=== PATIENT | female | born 1950 | race Caucasian/White ===

== ENCOUNTER 2022-01-19 19:40 | Observation (INO) ==
[2022-01-19] MEDS ORDERED: Naloxone 0.4 MG/ML INJ IVP PRN (20:00)
[2022-01-19] MEDS ORDERED: Ondansetron 4 MG/2 ML VIAL IVP PRN (20:00)
[2022-01-19] MEDS ORDERED: 0.9 % Sodium Chloride 1,000 ML IVC SCH (20:00)
[2022-01-19] MEDS ORDERED: Acetaminophen 325 MG TABLET PO PRN (20:00)
[2022-01-19] MEDS ORDERED: Fluticasone Propionate Nasal 50 MCG/SPRAY BOTTLE NS PRN (20:05)
[2022-01-19] MEDS ORDERED: D5% in Water 1,000 ML IVC PRN (20:09)
[2022-01-19] MEDS ORDERED: *HR* Dextrose 50 % in Water (Syg) 50 ML SYRINGE IVP PRN (20:09)
[2022-01-19] MEDS ORDERED: Dextrose 4 GM Chewable Tablets PO PRN ×2 (20:09)
[2022-01-19] MEDS ORDERED: Insulin DETEMIR 100 UNIT/ML per UNIT SUBQ ONE (21:30)
[2022-01-20 07:03] LABS: BUN/Creatinine Ratio 14 (6-26); Blood Urea Nitrogen 9 mg/dL (8-23); Calcium 8.7 mg/dL (8.6-10.3); Carbon Dioxide 26 mEq/L (23-29); Chloride 105 mEq/L (98-107); Chol/HDL Ratio 5.4 (0-4.9); Cholesterol 179 mg/dL (< 200); Glucose 160 mg/dL (70-105); HDL Cholesterol 33 mg/dL (40-59); LDL Cholesterol,Calculated 119 mg/dL (< 100); Magnesium 1.7 mg/dL (1.6-2.6); Osmolality,Calculated 288 (280-300); Potassium 3.3 mEq/L (3.5-5.1); Sodium 138 mEq/L (136-145); Triglycerides 134 mg/dL (< 150); eGFR For African Americans > 60 (> 60); eGFR For Non-African Americans > 60 (> 60)
[2022-01-20] MEDS: Aspirin Enteric Coated 81 MG Tablet PO SCH (08:20)
[2022-01-20] MEDS: Venlafaxine XR (24 HR) 150 MG CAP.ER.24H PO SCH (08:20)
[2022-01-20] MEDS: Anastrozole 1 MG TABLET PO SCH (08:20)
[2022-01-20] MEDS: Loratadine 10 MG TABLET PO SCH (08:20)
[2022-01-20] MEDS: Venlafaxine XR (24 HR) 75 MG CAP.ER.24H PO SCH (08:20)
[2022-01-20] MEDS: Insulin LISPRO 300 UNITS/3 ML VIAL SUBQ SCH ×4 (08:21→21:45)
[2022-01-20] MEDS ORDERED: Insulin DETEMIR 100 UNIT/ML X5UNITS SUBQ SCH (09:00)
[2022-01-20] MEDS ORDERED: amLODIPine 5 MG TABLET PO SCH (09:00)
[2022-01-20] MEDS: Tiotropium 10 INH DOSE IH SCH ×2 (10:38→10:44)
[2022-01-20] MEDS ORDERED: amLODIPine 5 MG TABLET PO ONE (11:41)
[2022-01-20] MEDS: cloNIDine HCL 0.1 MG TABLET PO SCH ×2 (12:57→20:16)
[2022-01-20] MEDS: Insulin DETEMIR 100 UNIT/ML X5UNITS SUBQ SCH (20:16)
[2022-01-21] MEDS: *HR* Enoxaparin 40 MG/0.4 ML SYRINGE SQ SCH (05:19)
[2022-01-21] MEDS: cloNIDine HCL 0.1 MG TABLET PO SCH ×2 (08:22→21:20)
[2022-01-21] MEDS: amLODIPine 5 MG TABLET PO SCH (08:22)
[2022-01-21] MEDS: Venlafaxine XR (24 HR) 150 MG CAP.ER.24H PO SCH (08:23)
[2022-01-21] MEDS: Anastrozole 1 MG TABLET PO SCH (08:23)
[2022-01-21] MEDS: Aspirin Enteric Coated 81 MG Tablet PO SCH (08:23)
[2022-01-21] MEDS: Venlafaxine XR (24 HR) 75 MG CAP.ER.24H PO SCH (08:23)
[2022-01-21] MEDS: Loratadine 10 MG TABLET PO SCH (08:23)
[2022-01-21] MEDS: Insulin LISPRO 300 UNITS/3 ML VIAL SUBQ SCH ×4 (08:24→21:00)
[2022-01-21] MEDS: Tiotropium 10 INH DOSE IH SCH (08:40)
[2022-01-21] MEDS: Insulin DETEMIR 100 UNIT/ML X5UNITS SUBQ SCH ×2 (09:35→21:22)
[2022-01-21] MEDS ORDERED: amLODIPine 5 MG TABLET PO ONE (11:31)
[2022-01-21] MEDS: lisinopriL 10 MG TABLET PO SCH (17:02)
[2022-01-21 19:09] VITALS: RESP 18
[2022-01-22] MEDS: *HR* Enoxaparin 40 MG/0.4 ML SYRINGE SQ SCH (05:30)
[2022-01-22 06:44] VITALS: BP 145/71; PULSE 61; TEMP 98.2; O2SAT 97
[2022-01-22] MEDS: Venlafaxine XR (24 HR) 75 MG CAP.ER.24H PO SCH (07:50)
[2022-01-22] MEDS: Anastrozole 1 MG TABLET PO SCH (07:50)
[2022-01-22] MEDS: lisinopriL 10 MG TABLET PO SCH (07:50)
[2022-01-22] MEDS: Loratadine 10 MG TABLET PO SCH (07:50)
[2022-01-22] MEDS: amLODIPine 5 MG TABLET PO SCH (07:50)
[2022-01-22] MEDS: Venlafaxine XR (24 HR) 150 MG CAP.ER.24H PO SCH (07:50)
[2022-01-22] MEDS: cloNIDine HCL 0.1 MG TABLET PO SCH (07:51)
[2022-01-22] MEDS: Aspirin Enteric Coated 81 MG Tablet PO SCH (07:51)
[2022-01-22] MEDS: Insulin LISPRO 300 UNITS/3 ML VIAL SUBQ SCH (07:51)
[2022-01-22] MEDS: Insulin DETEMIR 100 UNIT/ML X5UNITS SUBQ SCH (08:54)
[2022-01-22] MEDS: Tiotropium 10 INH DOSE IH SCH (09:01)
== END 2022-01-22 12:10 | disposition home health service (06) ==
LOC: INPPIK
PROVIDERS: ADMIT Family Medicine; ATTEND Family Medicine

== ENCOUNTER 2022-02-21 22:20 | Inpatient (IN) ==
[2022-02-21 22:59] LABS: Basophils % 0.7 %; Eosinophils # 0.1 K/mcL (0.0-0.6); Eosinophils % 2.3 %; Hematocrit 39.1 % (35.3-44.9); Hemoglobin 12.9 g/dL (11.5-15.4); Immature Granulocytes % 0.3 % (0-4); Lymphocytes % 32.2 %; Mean Corpuscular Hemoglobin 28.6 pg (28.0-33.3); Mean Corpuscular Volume 86.7 fL (83.0-100.0); Mean Platelet Volume 10.7 fL (9.4-12.4); Monocytes # 0.6 K/mcL (0.0-1.3); Monocytes % 9.4 %; Neutrophils # 3.3 K/mcL (1.6-8.9); Platelet Count 149 K/mcL (140-400); Red Blood Count 4.51 M/mcL (3.82-4.97); Red Cell Distribution Width 13.5 % (11.5-14.5); Segmented Neutrophils % 55.1 %; White Blood Count 6.1 K/mcL (4.3-11.1)
[2022-02-21 23:07] LABS: INR 1.2; Prothrombin Time 13.5 Seconds (9.4-12.1)
[2022-02-21 23:10] LABS: Activated Partial Thrombo Time 33.4 Seconds (26.0-36.0)
[2022-02-21 23:14] LABS: Bilirubin,Urine Negative (Negative); Blood,Urine Trace-intact (Negative); Clarity,Urine Slightly Cloudy (Clear); Color,Urine Yellow (Yellow); Glucose,Urine (UA) Normal (Normal); Ketones,Urine Negative (Negative); Leukocyte Esterase,Urine Moderate (Negative); Nitrite,Urine Negative (Negative); PH,Urine 5.5 pH Units (5.0-8.0); Protein,Urine Negative (Neg-Trace); Specific Gravity,Urine 1.025 (1.010-1.025); Urobilinogen,Urine Normal (Normal)
[2022-02-21 23:19] LABS: Alanine Aminotransferase 24 Units/L (7-52); Albumin 3.8 g/dL (3.5-5.7); Albumin/Globulin Ratio 1.4 (1.1-2.2); Alkaline Phosphatase 78 Units/L (34-104); Aspartate Amino Transferase 31 Units/L (13-39); BUN/Creatinine Ratio 11 (6-26); Bilirubin,Total 0.7 mg/dL (0.3-1.0); Blood Urea Nitrogen 7 mg/dL (8-23); Carbon Dioxide 27 mEq/L (23-29); Chloride 102 mEq/L (98-107); Globulin 2.7 g/dL (2.4-3.5); Glucose 163 mg/dL (70-105); Osmolality,Calculated 284 (280-300); Potassium 3.7 mEq/L (3.5-5.1); Sodium 136 mEq/L (136-145); Total Protein 6.5 g/dL (6.4-8.9); Troponin I < 0.03 ng/mL (< 0.04); eGFR For African Americans > 60 (> 60); eGFR For Non-African Americans > 60 (> 60)
[2022-02-21 23:23] LABS: Bacteria,Urine Moderate per hpf (None-Few); Mucus,Urine Moderate per lpf (None-Few); Squamous Epithelial Cell,Urine Few per hpf (None-Few); WBC,Urine 30-50 per hpf (0-3)
[2022-02-21] MEDS ORDERED: cefTRIAXone 1,000 MG in 0.9 % Sodium Chloride Mini Bag 100 ML IVPB ONE (23:43)
[2022-02-21] MEDS ORDERED: Furosemide 40 MG/4 ML VIAL IVP ONE (23:45)
[2022-02-22] MEDS ORDERED: Naloxone 0.4 MG/ML INJ IVP PRN (01:07)
[2022-02-22] MEDS ORDERED: Ondansetron 4 MG/2 ML VIAL IVP PRN (01:07)
[2022-02-22] MEDS ORDERED: Ringers Solution, Lactated 1,000 ML IVC SCH (01:15)
[2022-02-22] MEDS ORDERED: Isovue-370 500 ML BOTTLE IVP ONE (02:04)
[2022-02-22] MEDS: 0.9 % Sodium Chloride 1,000 ML IVC SCH ×2 (03:08→14:33)
[2022-02-22] MEDS ORDERED: Dextrose 4 GM Chewable Tablets PO PRN ×4 (05:02→09:51)
[2022-02-22] MEDS ORDERED: *HR* Dextrose 50 % in Water (Syg) 50 ML SYRINGE IVP PRN ×2 (05:02→09:51)
[2022-02-22] MEDS ORDERED: D5% in Water 1,000 ML IVC PRN ×2 (05:02→09:51)
[2022-02-22 07:08] LABS: Basophils % 0.6 %; Eosinophils # 0.1 K/mcL (0.0-0.6); Eosinophils % 1.9 %; Hematocrit 37.9 % (35.3-44.9); Hemoglobin 12.3 g/dL (11.5-15.4); Immature Granulocytes % 0.2 % (0-4); Lymphocytes # 1.8 K/mcL (0.6-4.6); Lymphocytes % 27.8 %; Mean Corpuscular HGB Conc 32.5 g/dL (31.6-35.5); Mean Corpuscular Hemoglobin 28.3 pg (28.0-33.3); Mean Corpuscular Volume 87.1 fL (83.0-100.0); Monocytes # 0.7 K/mcL (0.0-1.3); Monocytes % 10.4 %; Neutrophils # 3.8 K/mcL (1.6-8.9); Platelet Count 146 K/mcL (140-400); Red Blood Count 4.35 M/mcL (3.82-4.97); Red Cell Distribution Width 13.6 % (11.5-14.5); Segmented Neutrophils % 59.1 %; White Blood Count 6.4 K/mcL (4.3-11.1)
[2022-02-22 07:17] LABS: INR 1.3; Prothrombin Time 14.1 Seconds (9.4-12.1)
[2022-02-22 07:20] LABS: Activated Partial Thrombo Time 31.1 Seconds (26.0-36.0)
[2022-02-22 07:26] LABS: Alanine Aminotransferase 22 Units/L (7-52); Albumin 3.5 g/dL (3.5-5.7); Albumin/Globulin Ratio 1.1 (1.1-2.2); Aspartate Amino Transferase 28 Units/L (13-39); BUN/Creatinine Ratio 11 (6-26); Bilirubin,Total 0.6 mg/dL (0.3-1.0); Blood Urea Nitrogen 8 mg/dL (8-23); Calcium 8.9 mg/dL (8.6-10.3); Carbon Dioxide 27 mEq/L (23-29); Chloride 101 mEq/L (98-107); Chol/HDL Ratio 5.6 (0-4.9); Cholesterol 186 mg/dL (< 200); Globulin 3.1 g/dL (2.4-3.5); Glucose 226 mg/dL (70-105); HDL Cholesterol 33 mg/dL (40-59); LDL Cholesterol,Calculated 113 mg/dL (< 100); Magnesium 2.1 mg/dL (1.6-2.6); Osmolality,Calculated 287 (280-300); Phosphorous 4.3 mg/dL (2.7-4.5); Potassium 3.6 mEq/L (3.5-5.1); Sodium 136 mEq/L (136-145); Total Protein 6.6 g/dL (6.4-8.9); Triglycerides 201 mg/dL (< 150); eGFR For African Americans > 60 (> 60); eGFR For Non-African Americans > 60 (> 60)
[2022-02-22 08:09] LABS: Alkaline Phosphatase 70 Units/L (34-104)
[2022-02-22] MEDS ORDERED: Insulin DETEMIR 100 UNIT/ML X5UNITS SUBQ SCH ×2 (09:00→21:00)
[2022-02-22] MEDS: MetroNIDAZOLE 500 MG/100 ML 500 MG/100 ML BAG IVPB SCH ×3 (09:12→23:21)
[2022-02-22] MEDS: Chlorhexidine Rinse 15 ML MOUTHWASH MM SCH ×3 (09:13→19:49)
[2022-02-22] MEDS: cefTRIAXone 1,000 MG in 0.9 % Sodium Chloride 10 ML IVP SCH (09:13)
[2022-02-22] MEDS: Acetaminophen 325 MG TABLET PO PRN ×2 (09:14→17:25)
[2022-02-22] MEDS: Multivit/Ca/Min/Fe/FA 1 TAB TABLET PO SCH (09:14)
[2022-02-22] MEDS: Lactobacillus 1 EACH CAP.SPRINK PO SCH ×3 (09:14→19:50)
[2022-02-22] MEDS ORDERED: Fluticasone Propionate Nasal 50 MCG/SPRAY BOTTLE NS PRN (09:53)
[2022-02-22] MEDS ORDERED: Insulin LISPRO 300 UNITS/3 ML VIAL SUBQ SCH (11:30)
[2022-02-22 13:49] LABS: Estimated Average Glucose 166 mg/dl; Hemoglobin A1C 7.4 %
[2022-02-22] MEDS: Insulin LISPRO 300 UNITS/3 ML VIAL SUBQ SCH ×3 (14:32→20:56)
[2022-02-22] MEDS: Melatonin 3 MG TABLET PO PRN (19:50)
[2022-02-22] MEDS: Insulin DETEMIR 100 UNIT/ML X5UNITS SUBQ SCH (19:53)
[2022-02-23] MEDS: *HR* Enoxaparin 40 MG/0.4 ML SYRINGE SQ SCH (05:20)
[2022-02-23 07:36] LABS: Basophils % 0.5 %; Eosinophils # 0.1 K/mcL (0.0-0.6); Eosinophils % 1.8 %; Hematocrit 38.2 % (35.3-44.9); Hemoglobin 12.2 g/dL (11.5-15.4); Immature Granulocytes % 0.3 % (0-4); Lymphocytes # 1.9 K/mcL (0.6-4.6); Mean Corpuscular HGB Conc 31.9 g/dL (31.6-35.5); Mean Corpuscular Hemoglobin 28.2 pg (28.0-33.3); Mean Corpuscular Volume 88.2 fL (83.0-100.0); Mean Platelet Volume 10.9 fL (9.4-12.4); Monocytes # 0.8 K/mcL (0.0-1.3); Monocytes % 11.3 %; Neutrophils # 3.9 K/mcL (1.6-8.9); Platelet Count 136 K/mcL (140-400); Red Blood Count 4.33 M/mcL (3.82-4.97); Red Cell Distribution Width 13.7 % (11.5-14.5); Segmented Neutrophils % 58.1 %; White Blood Count 6.6 K/mcL (4.3-11.1)
[2022-02-23 07:58] LABS: BUN/Creatinine Ratio 16 (6-26); Blood Urea Nitrogen 11 mg/dL (8-23); Calcium 8.5 mg/dL (8.6-10.3); Carbon Dioxide 25 mEq/L (23-29); Chloride 105 mEq/L (98-107); Glucose 180 mg/dL (70-105); Magnesium 1.9 mg/dL (1.6-2.6); Osmolality,Calculated 286 (280-300); Potassium 3.9 mEq/L (3.5-5.1); Sodium 136 mEq/L (136-145); eGFR For African Americans > 60 (> 60); eGFR For Non-African Americans > 60 (> 60)
[2022-02-23] MEDS ORDERED: NON-FORMULARY MEDICATION 1 EACH EACH (Tiotropium Bromide [Spiriva Handihaler] 18 MCG Cap.W IH SCH (09:00)
[2022-02-23] MEDS: Tiotropium 10 INH DOSE IH SCH (09:09)
[2022-02-23] MEDS: MetroNIDAZOLE 500 MG/100 ML 500 MG/100 ML BAG IVPB SCH ×2 (09:29→17:28)
[2022-02-23] MEDS: Insulin LISPRO 300 UNITS/3 ML VIAL SUBQ SCH ×4 (09:31→21:04)
[2022-02-23] MEDS: lisinopriL 10 MG TABLET PO SCH (09:32)
[2022-02-23] MEDS: Aspirin Enteric Coated 81 MG Tablet PO SCH (09:32)
[2022-02-23] MEDS: Loratadine 10 MG TABLET PO SCH (09:32)
[2022-02-23] MEDS: Multivit/Ca/Min/Fe/FA 1 TAB TABLET PO SCH (09:32)
[2022-02-23] MEDS: Anastrozole 1 MG TABLET PO SCH (09:33)
[2022-02-23] MEDS: amLODIPine 5 MG TABLET PO SCH (09:33)
[2022-02-23] MEDS: Venlafaxine XR (24 HR) 75 MG CAP.ER.24H PO SCH (09:33)
[2022-02-23] MEDS: Acetaminophen 325 MG TABLET PO PRN ×2 (09:33→21:03)
[2022-02-23] MEDS: Venlafaxine XR (24 HR) 150 MG CAP.ER.24H PO SCH (09:33)
[2022-02-23] MEDS: Chlorhexidine Rinse 15 ML MOUTHWASH MM SCH ×2 (09:43→21:04)
[2022-02-23] MEDS: Lactobacillus 1 EACH CAP.SPRINK PO SCH ×2 (09:45→21:04)
[2022-02-23] MEDS: cefTRIAXone 1,000 MG in 0.9 % Sodium Chloride 10 ML IVP SCH (10:10)
[2022-02-23] MEDS: Insulin DETEMIR 100 UNIT/ML X5UNITS SUBQ SCH (21:04)
[2022-02-24] MEDS: MetroNIDAZOLE 500 MG/100 ML 500 MG/100 ML BAG IVPB SCH ×3 (00:45→16:51)
[2022-02-24] MEDS: *HR* Enoxaparin 40 MG/0.4 ML SYRINGE SQ SCH (06:11)
[2022-02-24 07:23] LABS: Basophils % 0.6 %; Eosinophils # 0.2 K/mcL (0.0-0.6); Eosinophils % 2.2 %; Hematocrit 35.9 % (35.3-44.9); Hemoglobin 11.8 g/dL (11.5-15.4); Immature Granulocytes % 0.3 % (0-4); Lymphocytes # 1.7 K/mcL (0.6-4.6); Lymphocytes % 24.1 %; Mean Corpuscular HGB Conc 32.9 g/dL (31.6-35.5); Mean Corpuscular Hemoglobin 28.4 pg (28.0-33.3); Mean Corpuscular Volume 86.5 fL (83.0-100.0); Monocytes # 0.8 K/mcL (0.0-1.3); Neutrophils # 4.3 K/mcL (1.6-8.9); Platelet Count 141 K/mcL (140-400); Red Blood Count 4.15 M/mcL (3.82-4.97); Red Cell Distribution Width 13.6 % (11.5-14.5); Segmented Neutrophils % 61.8 %; White Blood Count 6.9 K/mcL (4.3-11.1)
[2022-02-24 07:49] LABS: BUN/Creatinine Ratio 15 (6-26); Blood Urea Nitrogen 9 mg/dL (8-23); Calcium 8.6 mg/dL (8.6-10.3); Carbon Dioxide 25 mEq/L (23-29); Chloride 103 mEq/L (98-107); Glucose 209 mg/dL (70-105); Osmolality,Calculated 283 (280-300); Potassium 3.6 mEq/L (3.5-5.1); Sodium 134 mEq/L (136-145); eGFR For African Americans > 60 (> 60); eGFR For Non-African Americans > 60 (> 60)
[2022-02-24] MEDS: lisinopriL 10 MG TABLET PO SCH (09:33)
[2022-02-24] MEDS: Aspirin Enteric Coated 81 MG Tablet PO SCH (09:33)
[2022-02-24] MEDS: Lactobacillus 1 EACH CAP.SPRINK PO SCH ×2 (09:33→20:03)
[2022-02-24] MEDS: Multivit/Ca/Min/Fe/FA 1 TAB TABLET PO SCH (09:33)
[2022-02-24] MEDS: Anastrozole 1 MG TABLET PO SCH (09:33)
[2022-02-24] MEDS: amLODIPine 5 MG TABLET PO SCH (09:33)
[2022-02-24] MEDS: Venlafaxine XR (24 HR) 75 MG CAP.ER.24H PO SCH (09:34)
[2022-02-24] MEDS: Loratadine 10 MG TABLET PO SCH (09:34)
[2022-02-24] MEDS: Acetaminophen 325 MG TABLET PO PRN ×2 (09:34→20:05)
[2022-02-24] MEDS: Venlafaxine XR (24 HR) 150 MG CAP.ER.24H PO SCH (09:34)
[2022-02-24] MEDS: Chlorhexidine Rinse 15 ML MOUTHWASH MM SCH ×2 (09:34→20:02)
[2022-02-24] MEDS: Insulin LISPRO 300 UNITS/3 ML VIAL SUBQ SCH ×4 (09:35→20:15)
[2022-02-24] MEDS: Tiotropium 10 INH DOSE IH SCH (09:51)
[2022-02-24] MEDS ORDERED: Gadolinium Contrast Agent (WT Based) IV PRN (14:21)
[2022-02-24] MEDS: Melatonin 3 MG TABLET PO PRN (20:05)
[2022-02-24] MEDS: Insulin DETEMIR 100 UNIT/ML X5UNITS SUBQ SCH (20:13)
[2022-02-25] MEDS: MetroNIDAZOLE 500 MG/100 ML 500 MG/100 ML BAG IVPB SCH ×2 (00:06→08:04)
[2022-02-25 00:34] VITALS: O2SAT 95
[2022-02-25] MEDS: *HR* Enoxaparin 40 MG/0.4 ML SYRINGE SQ SCH (06:28)
[2022-02-25] MEDS: Anastrozole 1 MG TABLET PO SCH (08:02)
[2022-02-25] MEDS: amLODIPine 5 MG TABLET PO SCH (08:02)
[2022-02-25] MEDS: Lactobacillus 1 EACH CAP.SPRINK PO SCH (08:02)
[2022-02-25] MEDS: Venlafaxine XR (24 HR) 75 MG CAP.ER.24H PO SCH (08:03)
[2022-02-25] MEDS: Multivit/Ca/Min/Fe/FA 1 TAB TABLET PO SCH (08:03)
[2022-02-25] MEDS: Venlafaxine XR (24 HR) 150 MG CAP.ER.24H PO SCH (08:03)
[2022-02-25] MEDS: Loratadine 10 MG TABLET PO SCH (08:04)
[2022-02-25] MEDS: lisinopriL 10 MG TABLET PO SCH (08:04)
[2022-02-25] MEDS: Aspirin Enteric Coated 81 MG Tablet PO SCH (08:04)
[2022-02-25] MEDS: Chlorhexidine Rinse 15 ML MOUTHWASH MM SCH (08:05)
[2022-02-25] MEDS: Insulin LISPRO 300 UNITS/3 ML VIAL SUBQ SCH ×2 (08:12→12:17)
[2022-02-25] MEDS: Tiotropium 10 INH DOSE IH SCH (08:37)
[2022-02-25 09:08] LABS: Basophils % 0.6 %; Eosinophils # 0.2 K/mcL (0.0-0.6); Eosinophils % 2.9 %; Hematocrit 37.3 % (35.3-44.9); Hemoglobin 12.3 g/dL (11.5-15.4); Immature Granulocytes % 0.5 % (0-4); Lymphocytes # 1.6 K/mcL (0.6-4.6); Lymphocytes % 24.4 %; Mean Corpuscular Hemoglobin 28.6 pg (28.0-33.3); Mean Corpuscular Volume 86.7 fL (83.0-100.0); Mean Platelet Volume 10.5 fL (9.4-12.4); Monocytes # 0.6 K/mcL (0.0-1.3); Neutrophils # 4.1 K/mcL (1.6-8.9); Platelet Count 153 K/mcL (140-400); Red Cell Distribution Width 13.7 % (11.5-14.5); Segmented Neutrophils % 62.6 %; White Blood Count 6.5 K/mcL (4.3-11.1)
[2022-02-25 09:28] LABS: BUN/Creatinine Ratio 13 (6-26); Blood Urea Nitrogen 9 mg/dL (8-23); Calcium 8.7 mg/dL (8.6-10.3); Carbon Dioxide 24 mEq/L (23-29); Chloride 101 mEq/L (98-107); Glucose 226 mg/dL (70-105); Osmolality,Calculated 280 (280-300); Potassium 3.9 mEq/L (3.5-5.1); Sodium 132 mEq/L (136-145); eGFR For African Americans > 60 (> 60); eGFR For Non-African Americans > 60 (> 60)
[2022-02-25] MEDS ORDERED: hydrALAZINE 25 MG TABLET PO PRN (09:37)
[2022-02-25 12:23] VITALS: BP 155/84; PULSE 90; RESP 16; TEMP 98
== END 2022-02-25 12:51 | disposition short-term general hospital (02) | DRG 115 ==
LOC: INPPIK 22:20 → EMEROOPIK 22:20 → INPPIK 02-22 01:33
PROVIDERS: ADMIT Internal Medicine; ATTEND Family Medicine